=== PATIENT | male | born 1950 | race Caucasian/White ===

== ENCOUNTER → 2021-10-10 | Outpatient (CLI) | payer OTHER ==
[~2021-10-10] MED LIST: ASPI325 PO; ASPI81CH PO; BENAML10/2 PO; ELIQUIS5 MG PO; ESCI20 PO; METO50ER PO; MULVITMIND PO; TOCO400 PO; WARF10 PO
[2021-10-11 12:26] LABS: Stool Occult Bld Immuno 1 Positive (NEGATIVE)
== END | disposition home or self-care (01) ==
LOC: LAB SHORT 11:19
PROVIDERS: Family Medicine
DX: Z12.11 Encounter for screening for malignant neoplasm of colon (principal)
CPT/HCPCS: 82274

== ENCOUNTER 2022-02-04 12:46 | Day surgery (SDC) | payer OTHER ==
[~2022-02-04] VITALS: Ht 177.8 cm; Wt 75.0 kg
--- NOTE | 2022-02-04 14:37 | NUR ---
02/04/22 1437 ANG JAMES PT ON 325MG ASPIRIN, WAS NOT TOLD TO DC 7 DAYS PRIOR TO PROCEDURE, PT CASE CANCELLED BY DR MENDOZA
== END 2022-02-04 14:34 | disposition home or self-care (01) ==
LOC: ORSCSDS 12:46
DX: Z86.010 Personal history of colon polyps (principal); Z53.9 Procedure and treatment not carried out, unspecified reason
CPT/HCPCS: J2704; J7120

== ENCOUNTER 2022-02-18 11:40 | Day surgery (SDC) | payer OTHER ==
[~2022-02-18] VITALS: Ht 177.8 cm; Wt 75.0 kg
--- NOTE | 2022-02-18 12:35 | NUR ---
02/18/22 1235 Lisbet Dunlap TWO ATTEMPTS AT IV. FIRST ATTEMPT AT IV BY MA IN RIGHT HAND INFILTRATED. SECOND ATTEMPT AT IV BY MA IN RIGHT FOREARM SUCCESSRFUL.
== END 2022-02-18 15:32 | disposition home or self-care (01) ==
LOC: ORSCSDS 11:40
PROVIDERS: Student in an Organized Health Care Education/Training Program
PROC: 0DBK8ZX Excision of Ascending Colon, Via Natural or Artificial Opening Endoscopic, Diagnostic (ICD-10-PCS; principal; 2022-02-18 13:00)
PROC: 0DBL8ZX Excision of Transverse Colon, Via Natural or Artificial Opening Endoscopic, Diagnostic (ICD-10-PCS; principal; 2022-02-18 13:00)
DX: K92.1 Melena (principal); Z86.010 Personal history of colon polyps; K57.30 Diverticulosis of large intestine without perforation or abscess without bleeding; K64.8 Other hemorrhoids; K64.4 Residual hemorrhoidal skin tags; I10 Essential (primary) hypertension; Z87.891 Personal history of nicotine dependence; Z79.899 Other long term (current) drug therapy; Z79.82 Long term (current) use of aspirin; G47.33 Obstructive sleep apnea (adult) (pediatric); I48.3 Typical atrial flutter
CPT/HCPCS: 88305; 93005; 93010; J2704; J7120

== ENCOUNTER → 2023-06-06 | Outpatient (CLI) | payer OTHER ==
[2023-06-06 11:11] LABS: Source, Urine Clean Catch
[2023-06-06 11:55] LABS: Appearance, Urine Clear (Clear); Bilirubin, Urine Neg (Neg); Blood, Urine 1+ (Neg); Color, Urine Yellow (P-Yellow); Glucose Qualitative, Urine Neg (Neg); Ketones, Urine 3+ (Neg); Leukocyte Esterase, Urine Neg (Neg); Nitrite, Urine Neg (Neg); Protein, Urine 1+ (Neg); Urobilinogen, Urine NORM (Normal)
[2023-06-06 12:08] LABS: Red Blood Cells, Urine 0-2 /hpf (0-2); Squamous Epithelial Cells Rare /hpf (Few)
[2023-06-06 12:09] LABS: Bacteria Rare /hpf; Hyaline Casts 0-2 /lpf (0-2); Mucus Light (0-Heavy)
== END | disposition home or self-care (01) ==
LOC: LAB 11:07 → LAB SHORT 11:07
PROVIDERS: Nurse Practitioner Family
DX: C61 Malignant neoplasm of prostate (principal)
CPT/HCPCS: 81001